=== PATIENT | female | born 1940 | race Two or more races ===

== ENCOUNTER 2017-04-18 08:52 | Emergency (ER) | payer OTHER ==
[~2017-04-18] VITALS: Ht 160 cm; Wt 68.0 kg
[2017-04-18] MEDS ORDERED: NITROSTAT0.4 MG SL (09:25)
[2017-04-18] MEDS ORDERED: HYDRALAZINE HCL25 MG PO (09:25)
[2017-04-18] MEDS ORDERED: COZAAR50 MG PO (09:25)
[2017-04-18] MEDS ORDERED: GLIMEPIRIDE4 MG PO (09:26)
[2017-04-18] MEDS ORDERED: FORTAMET1000 MG PO (09:26)
[2017-04-18] MEDS ORDERED: LASIX20 MG PO (18:26)
== END 2017-04-18 19:03 | disposition home or self-care (01) ==
LOC: ER 08:52 → CPU-OBS 09:22 → ER 19:03
DX: I25.10 Atherosclerotic heart disease of native coronary artery without angina pectoris (principal); R07.89 Other chest pain; R06.02 Shortness of breath

== ENCOUNTER 2017-08-29 10:29 | Outpatient (CLI) | payer OTHER ==
[~2017-08-29 10:29] MED LIST: COZAAR50 MG PO; FORTAMET1000 MG PO; GLIMEPIRIDE4 MG PO; HYDRALAZINE HCL25 MG PO; LASIX20 MG PO; NITROSTAT0.4 MG SL
== END 2017-08-29 10:35 | disposition home or self-care (01) ==
LOC: RAD 501 10:29
DX: I15.8 Other secondary hypertension (principal); I10 Essential (primary) hypertension